=== PATIENT | male | born 1985 | race Caucasian/White ===

== ENCOUNTER 2017-05-26 23:52 | Emergency (ER) ==
[2017-05-27 00:08] VITALS: BP 135/87; TEMP 98.9; BMI 25.7
[2017-05-27] MEDS ORDERED: DECADRON 4 MG/ML SDV IM STA (00:17)
[2017-05-27] MEDS ORDERED: TORADOL IM STA (00:17)
[2017-05-27] MEDS ORDERED: KEFLEX PO STA (00:17)
--- NOTE | 2017-05-27 00:20 | ED.PDOC ---
General ED Provider: Dr. SHAN ZAMBRANO Chief Complaint: Bite Stated Complaint: c/o spider bite on rt arm, it is swollen and red. hurting. Time Seen by Physician: 00:17 Mode of Arrival: Walk-In Information Source: Patient, Family Nursing and Triage Documentation Reviewed and Agree: Yes Skin Complaint Exam - Skin/Soft Tissue Complaint/Exam Symptoms Are: Still present Timing: Constant Initial Severity: Mild Current Severity: Mild Character: Reports: Redness, Swelling, Raised, Painful Aggravating: Reports: Touch Alleviating: Reports: None Associated Signs and Symptoms: Reports: Tenderness. Denies: Fever, Chills, Itching, Drainage, Bruising, Red streaks, Joint swelling Related Surgical History: Reports: None Recent Exposure to Others w/Similar Symptoms: No Skin Findings: Present: Erythema, Induration. Absent: Fluctuant mass Differential Diagnoses: Cellulitis, Other (spider bite) Review of Systems - Review Of Systems Constitutional: Reports: No symptoms Eyes: Reports: No symptoms Ears, Nose, Mouth, Throat: Reports: No symptoms Respiratory: Reports: No symptoms Cardiac: Reports: No symptoms GI: Reports: No symptoms : Reports: No symptoms Musculoskeletal: Reports: No symptoms Skin: Reports: No symptoms Neurological: Reports: No symptoms Endocrine: Reports: No symptoms Hematologic/Lymphatic: Reports: No symptoms All Other Systems: Reviewed and Negative Past Medical History - Past Medical History Previously Healthy: Yes Endocrine: Reports: None Cardiovascular: Reports: None Respiratory: Reports: None Hematological: Reports: None Gastrointestinal: Reports: None Genitourinary: Reports: None Neuro/Psych: Reports: None Musculoskeletal: Reports: None Cancer: Reports: None - Surgical History General Surgical History: Reports: None - Family History Family History: Reports: None - Social History Smoking Status: Vaping Hx Substance Use: No Alcohol Screening: None - Immunizations Tetanus Shot up to Date: Yes (2013) Physical Exam - Physical Exam Appearance: Well-appearing, No pain distress, Well-nourished Eyes: VICKI, EOMI, Conjunctiva clear ENT: Ears normal, Nose normal, Oropharynx normal Respiratory: Airway patent, Breath sounds clear, Breath sounds equal, Respirations nonlabored Cardiovascular: RRR, Pulses normal, No rub, No murmur GI/: Soft, Nontender, No masses, Bowel sounds normal, No Organomegaly Musculoskeletal: Normal strength, ROM intact, No edema, No calf tenderness Skin: Warm, Dry, Normal color Neurological: Sensation intact, Motor intact, Reflexes intact, Cranial nerves intact, Alert, Oriented Psychiatric: Affect appropriate, Mood appropriate Critical Care Note - Critical Care Note Total Time (mins): 0 Course - Course Orders, Labs, Meds: Orders Category Date Time Status Cephalexin [Keflex] MEDS 05/27/17 00:17 Stat 500 mg PO ONCE STA Dexamethasone 4 mg/ml Inj [Decadron 4 mg/ml Sdv] MEDS 05/27/17 00:17 Stat 4 mg IM ONCE STA Ketorolac Tromethamine [Toradol] MEDS 05/27/17 00:17 Stat 60 mg IM ONCE STA Vital Signs: Temp Pulse Resp BP Pulse Ox 05/26/17 23:53 98.9 F 123 H 20 135/87 94 L Departure - Departure Time of Disposition: 00:21 Disposition: HOME SELF-CARE Discharge Problem: Spider bite Qualifiers: Encounter type: initial encounter Injury intent: accidental or unintentional Qualifier Code: (T63.301A) Toxic effect of unspecified spider venom, accidental (unintentional), initial encounter Instructions: Insect Bite or Sting (ED) Condition: Stable Pt referred to PMD for follow-up: Yes Additional Instructions: needs f/u with PMD in 2 days take medications with food Prednisne 10 po bid x 7 days Keflex 500 po bid x 7 days Allergies/Adverse Reactions: Allergies latex Adverse Reaction (Verified 05/27/17 00:00) Home Medications: Ambulatory Orders Dextroamphetamine/Amphetamine [Adderall 20 mg Tablet] 20 mg PO 1-3XD 05/27/17 Gabapentin 800 mg PO TID 05/27/17 Disposition Discussed With: Patient, Family
== END 2017-05-27 00:35 | disposition home or self-care (01) ==
LOC: ED 23:52
DX: T63.301A Toxic effect of unspecified spider venom, accidental (unintentional), initial encounter (principal)
CPT/HCPCS: 96372; 99283